=== PATIENT | female | born 1985 | race Caucasian/White ===

== ENCOUNTER 2017-02-05 10:40 | Emergency (ER) | payer BC ==
[~2017-02-05] VITALS: Ht 162.6 cm; Wt 74.8 kg
[2017-02-05 11:07] VITALS: BP 109/70
[2017-02-05] MEDS ORDERED: OXYCODONE HCL 55 MG PO (11:07)
== END 2017-02-05 11:36 | disposition home or self-care (01) ==
LOC: ER 10:40
DX: S92.512A Displaced fracture of proximal phalanx of left lesser toe(s), initial encounter for closed fracture (principal); W18.49XA Other slipping, tripping and stumbling without falling, initial encounter; Y93.89 Activity, other specified; Y92.89 Other specified places as the place of occurrence of the external cause; Y99.8 Other external cause status